=== PATIENT | female | born 1965 | race Caucasian/White ===

== ENCOUNTER 2018-08-11 20:51 | Emergency (ER) | payer SELFPAY, OTHER ==
[2018-08-11] MEDS: DIPHTH/TET/ACEL PERTUSS (ADULT) 0.5 ML VIAL IM* (23:07)
[2018-08-11] MEDS: OXYCODONE/ACETAMINOPHEN (5/325) TAB PO (23:07)
[2018-08-11] MEDS: LIDOCAINE 1% (MDV) 20 ML INJ SC (23:10)
== END 2018-08-11 23:22 | disposition home or self-care (01) ==
LOC: E/R 20:51
DX: S01.81XA Laceration without foreign body of other part of head, initial encounter (principal); V49.50XA Passenger injured in collision with unspecified motor vehicles in traffic accident, initial encounter; Z23 Encounter for immunization
CPT/HCPCS: 12013; 70450; 71045; 72125; 90471; 90715; 99284-25